=== PATIENT | female | born 1995 | race Caucasian/White ===

== ENCOUNTER 2025-07-31 12:35 | Emergency (ER) | payer BC, SELFPAY ==
[2025-07-31] VITALS (9 sets, daily range): BP systolic 140–188; BP diastolic 86–128; PULSE 68–118; RESP 16; TEMP 37.1; O2SAT 96–100; BMI 46.8
--- OUTSIDE RECORDS SUMMARY | 2025-07-31 12:38 | XMS_ITS | Clinical Summary ---
Author Organization [facility] Address [address] [place] [address] Care Team Providers Care Mdm Sr Name Role Phone Unavailable Primary Care Provider Unavailabl e Source Comments Patient records contain information from all sites at [facility]. For routine questions regarding patient records, call [phone] during business hours, M-F 8:00 AM - 5:00 PM Central Time. Record requests for emergency care only can be directed to [phone] at any time.[facility] Allergies No known active allergies Medications * This document contains information received from the source organization and may not represent a complete record from that organization. etonogestreL (NEXPLANON) 68 mg subdermal implant 1 each by subdermal route continuously. Inserted 11/19/2022 3 Active multivitamin tablet Take 1 tablet by mouth daily. Active Active Problems Problem Noted Date Diagnosed Date Elevated Blood Pressure 04/07/2025 Assessment & Plan (04/07/2025 9:49 AM CDT): Elevated Blood Pressure Blood pressure was elevated at 150/85. Previous borderline reading of 142/88 two years ago. Emphasized controlling blood pressure before to reduce risks such as gestational hypertension and preeclampsia. Advised home blood pressure monitoring to establish baseline levels and report findings. Discussed referral to family medicine for management if readings remain elevated. - Purchase a home blood pressure cuff and monitor regularly. - Report home blood pressure readings via portal message in one month. - Consider referral to family medicine for management if readings remain elevated. Surveillance Contraceptive Subdermal 11/19/2022 Overview (11/19/2022): Nexplanon inserted 11/19/2022. Family History Medical History Relation Name Comments No Known Problems Brother No Known Problems Father Heart disease Maternal Grandfather Hypertension Maternal Grandfather Hypertension Maternal Grandmother Breast cancer Mother Relation Name Status Comments Brother Alive Father Alive Maternal Grandfather Maternal Grandmother Mother Alive Social History Tobacco Use Types Packs/Day Years Used Date Smoking Tobacco: Never Smokeless Tobacco: Never Tobacco Cessation:Counseling Given: Not Answered Alcohol Use Standard Drinks/Week Comments Yes 0 (1 standard drink = 0.6 oz pur e alcohol) Rare [facility] Utilities Answer Date Recorded In the past 12 months has th e electric, gas, oil, or water company threatened to shut off services in your home? No 03/31/2025 Hunger Vital Sign Answer Date Recorded Within the past 12 months, y ou worried that your food would run out before you got the money to buy more. Never true 03/31/20 25 Within the past 12 months, t he food you bought just didn't last and you didn't have money to get more. Never true 03/31/2025 PRAPARE - Transportation Answer Date Re corded In the past 12 months, has l ack of transportation kept you from medical appointments or from getting medications? No 03/04 In the past 12 months, has l ack of transportation kept you from meetings, work, or from getting things needed for daily living? No 03/31/2025 Housing Stability Answer Date Recorded What is your living situation today? 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 Not on file No t on file Last Filed Vital Signs Vital Sign Reading Time Taken Comments Blood Pressure 150/85 04/07/2025 8:44 AM CDT Pulse - - Temperature - - Respiratory Rate - - Oxygen Saturation - - Inhaled Oxygen Concentration - - Weight 145 kg (319 lb 14.2 oz) 04/07/2025 8:44 A M CDT Height 175.8 cm (5' 9.21) 04/07/2025 8:44 AM CD T Body Mass Index 46.95 04/07/2025 8:44 AM CDT Plan of Treatment Health Maintenance Due Date Last Done Comments Cervical/Vaginal Cancer Screening 1994 HIV Screening 1994 Hepatitis C Screening 1994 Depression Screening (Annual PHQ-2) 11/03/2024 COVID-19 Vaccine ( season) 2025 05/01/2021, 04/10/2021 Influenza Vaccine (#1) 2025 9, 10/10/2018, 08/03/2017, Additional history exists DTaP,Tdap,and Td Vaccines (8 - Td or Tdap) 11/29/2025 11/29/2015, 07/02/2005, 05/21/1999, Additional history exists Hepatitis B Vaccines Completed 1994, 1994, 1994 IPV Vaccines Completed 08/14/1995, 12/05, 1994, Additional history exists HPV Vaccines Completed 01/10/2012, 09/03, 07/02/2011 Pneumococcal vaccine (0-49 years) Aged Out No longer eligible based on patient's age to complete this topic Medical Devices Implanted Type Area Public Housing Interviewer Device Identifier Shelf Expiration Date Model / Serial / Lot [id number]-11/03 Implanted:Qty : 1 on 11/19/2022 by Edith Gilliland, LU, C.N.P. Gynecologic Other Left: Arm [employer] 09/04/2024 / / [id number] Description:Nexplanon Insurance [facility] [place] [id number] [place] [id number] PROGRESSIVE
--- NOTE | 2025-07-31 13:09 | CRLHL7_ITS ---
For Patients: As a result of the Century Cures Act, medical imaging exams and procedure reports are released immediately into your electronic medical record. You may view this report before your referring provider. If you have questions, please contact your health care provider. INDICATION: Right calf pain TECHNIQUE: A compression venous ultrasound exam was performed of the left lower extremity using eldridge-scale imaging, color Doppler and spectral Doppler analysis. FINDINGS: Sonographic imaging of the right lower extremity demonstrates normal compressibility and color Doppler venous blood flow within the common femoral vein, deep femoral vein, and the proximal greater saphenous vein. Within the thigh, the femoral vein is patent and compressible. At a lower level, the popliteal and posterior tibial veins also show normal compressibility and color Doppler venous blood flow. Limited imaging of the contralateral groin demonstrates a normal spectral waveform and color Doppler venous blood flow within the right common femoral vein. IMPRESSION: No evidence of deep vein thrombosis within the right lower extremity. Dictated by Denisse Edwards MD @ 07/31/2025 3:10:18 PM (Electronically Signed)
--- OUTSIDE RECORDS SUMMARY | 2025-07-31 13:25 | XMS_ITS | Clinical Summary ---
Author Organization [email or web address] Address [address] [place] [id number] Care Team Providers Care Front Desk Associate Name Role Phone Manquin [facility] - Primary Ne re Provider Allergies No known active allergies Medications No known medications Social History Tobacco Use Types Packs/Day Years Used Date Smoking Tobacco: Never Assessed Interpersonal Safety Answer Date Record ed Are you being hit, kicked, p ushed or yelled at (see row info)? No 12/27/2024 Interpersonal Safety Abuse 12 - 18 Not on file 12/27/2024 Interpersonal Safety Ambulatory Vulnerability No t on file 12/27/2024 Comments No Sex and Gender Information Value Date Recorded Sex Assigned at Not on file Legal Sex Female 8:48 AM CDT Gender Identity Not on file Sexual Orientation Not on file Obstetrics History Last Filed Vital Signs Vital Sign Reading Time Taken Comments Blood Pressure 157/97 12/27/2024 6:58 PM SALES TRAINER Pulse 118 12/27/2024 6:58 PM SALES TRAINER Temperature 37.3 C (99.2 F) 12/27/2024 6:58 PM SALES TRAINER Respiratory Rate 16 12/27/2024 6:58 PM SALES TRAINER Oxygen Saturation 99% 12/27/2024 6:58 PM SALES TRAINER Inhaled Oxygen Concentration - - Weight 143.2 kg (315 lb 11.2 oz) 12/27/2024 6:58 PM SALES TRAINER Height 175.3 cm (5' 9) 12/27/2024 6:58 PM SALES TRAINER Body Mass Index 46.62 12/27/2024 6:58 PM SALES TRAINER Plan of Treatment Health Maintenance Due Date Last Done Comments Tetanus booster 2005 Depression screening for age 12+ 2006 HIV for age 15-65 2009 BMI (ht and wt on same day) for age 18+ 2012 Hepatitis C screening for ag e 18-79 2012 Hepatitis B series for 19+ ( 1 of 3 - 19+ 3-dose series) 2013 Pap test for age 21-65 2015 HPV series for age 9-45 (1 - 3-dose SCDM series) 2021 COVID-19 vaccine series (3 - 2024- season) 2025 05/01/2021, 04/10/2021 Influenza Vaccine (#1) 2025 RSV vaccine for adults or (1 - 1-dose 75+ series) 2069 Pneumococcal series for age 6-49 Aged Out No longer eligible b ased on patient's age to complete this topic Insurance [facility] [employer] INS [id number] [place] [id number] Care Teams Front Desk Associate Relationship Specialty Start Date End Date Desiree [facility] - [address] [place] [id number] PCP - General 12/27/24
--- NOTE | 2025-07-31 13:31 | ED.GENADULT ---
HPI - General Adult General Chief complaint: Extremity Pain/Injury, Lower Stated complaint: Right leg, Knee down hurts and weak Time Seen by Provider: 07/31/25 12:45 Source: patient Mode of arrival: ambulatory Limitations: no limitations History of Present Illness HPI narrative: 30-year-old female presenting today with right lower extremity pain. Patient states it has been hurting for about 4 days now. She states the pain is located below the knee all the way down to the foot. She states that when she lays down the pain goes away. When she sits she starts to feel the pain when she stands the pain is certainly present. A makes her legs feel weak. She states that she has been having some low back pain as well as well as some right-sided hip pain. She has been seeing a chiropractor fairly regularly for quite some time now for her back and hip pain. Her chiropractor told her to come to the emergency department to rule out a DVT. She denies chest pain or shortness of breath. No fevers or chills. No injury to the area. She denies the knee giving out or feeling weak. She denies any skin rashes. She denies any loss of bowel or bladder function. She denies any unintentional weight loss. Related Data Previous Rx's ?Medication ?Instructions ?Recorded methylprednisolone 4 mg tablets in See Rx Instructions PO .COMPLEX 07/31/25 a dose pack (Medrol (Harpreet)) #21 ea Allergies Allergy/AdvReac Type Severity Reaction Status Date / Time No Known Drug Allergies Allergy Verified 07/31/25 12:44 Review of Systems Status of ROS: Reports: 10 or more systems reviewed and unremarkable except as noted in History and below Exam Narrative: Exam Narrative: Obese, well-developed patient in no acute distress. Alert and oriented. Answers questions appropriately. Mood and affect are appropriate. Thoughts are goal oriented and rational. No tangential or magical thinking noted. Patient speaks in full sentences without needing to catch her breath. HEENT: Normocephalic atraumatic. Pupils are equally round reactive to light. Extraocular muscles are intact. Conjunctivae are moist without any icterus noted. Moist mucous membranes. Abdomen: Soft and nontender nondistended with normal bowel sounds. Difficult to assess for organomegaly secondary to body habitus. Extremities: Bilateral lower extremities are without edema. Normal DP and PT pulses. Patient has normal strength of the lower extremities with flexion and extension both at the distal and proximal muscle groups. She has no footdrop. She has a slightly decreased strength with flexion at the right ankle when compared to the left. Normal circumference of the calf. Negative Homans sign. There is no obvious swelling. No tenderness palpation at the calf. Skin: Well perfused without any obvious rashes. Back: Normal appearance. She has mild discomfort of the paraspinal musculature on the right side of the lumbar spine. Const: Vital Signs, click to edit/add: Vital Signs - 24 hr 07/31/25 12:44 07/31/25 14:06 07/31/25 14:07 Temperature 98.8 F Pulse Rate 94 92 Pulse Rate [Pulse Oximeter] 118 H Respiratory Rate 16 Blood Pressure 144/86 H Blood Pressure [Ri ght Upper Arm] 188/128 H Pulse Oximetry 96 97 99 Oxygen Delivery Me thod Room Air 07/31/25 14:15 07/31/25 14:30 07/31/25 14:31 Temperature Pulse Rate 68 99 88 Pulse Rate [Pulse Oximeter] Respiratory Rate Blood Pressure 156/93 H Blood Pressure [Ri ght Upper Arm] Pulse Oximetry 99 100 98 Oxygen Delivery Me thod 07/31/25 14:45 07/31/25 15:00 07/31/25 15:02 Temperature Pulse Rate 84 74 68 Pulse Rate [Pulse Oximeter] Respiratory Rate Blood Pressure 140/86 H Blood Pressure [Ri ght Upper Arm] Pulse Oximetry 99 99 99 Oxygen Delivery Me thod Course Course ED Course: Venous ultrasound was unremarkable. Vital Signs Vital signs: Initial Vital Signs Temperature 98.8 F 07/31/25 12:44 Temperature Source Temporal Artery Scan 07/31/25 12:44 Pulse Rate 118 H 07/31/25 12:44 Respiratory Rate 16 07/31/25 12:44 Blood Pressure 188/128 H 07/31/25 12:44 Blood Pressure Mean 148 H 07/31/25 12:44 Blood Pressure Position Standing 07/31/25 12:44 Pulse Oximetry 96 07/31/25 12:44 Oxygen Delivery Method Room Air 07/31/25 12:44 Vital Signs Temperature 98.8 F 07/31/25 12:44 Pulse Rate 118 H 07/31/25 12:44 Respiratory Rate 16 07/31/25 12:44 Blood Pressure 188/128 H 07/31/25 12:44 Pulse Oximetry 96 07/31/25 12:44 Oxygen Delivery Method Room Air 07/31/25 12:44 Temperature 98.8 F 07/31/25 12:44 Pulse Rate 68 07/31/25 15:02 Respiratory Rate 16 07/31/25 12:44 Blood Pressure 140/86 H 07/31/25 15:02 Pulse Oximetry 99 07/31/25 15:02 Oxygen Delivery Method Room Air 07/31/25 12:44 Medical Decision Making MDM Narrative Medical decision making narrative: 30-year-old female with low back pain and radiculopathy. Will treat with a Medrol Dosepak. Imaging Data Venous US: Attestation: I have reviewed the pertinent imaging results. Radiologist's impression: Right calf pain TECHNIQUE: A compression venous ultrasound exam was performed of the left lower extremity using eldridge-scale imaging, color Doppler and spectral Doppler analysis. FINDINGS: Sonographic imaging of the right lower extremity demonstrates normal compressibility and color Doppler venous blood flow within the common femoral vein, deep femoral vein, and the proximal greater saphenous vein. Within the thigh, the femoral vein is patent and compressible. At a lower level, the popliteal and posterior tibial veins also show normal compressibility and color Doppler venous blood flow. Limited imaging of the contralateral groin demonstrates a normal spectral waveform and color Doppler venous blood flow within the right common femoral vein. IMPRESSION: No evidence of deep vein thrombosis within the right lower extremity. Discharge Plan Discharge Clinical Impression: Radiculopathy, Elevated blood pressure reading Patient Disposition: Home, Self-Care Condition: Stable Additional Instructions: Take steroid as prescribed. Recommend following up with your primary care provider to discuss physical therapy for back strengthening exercises. Return to the emergency department if you develop loss of bowel or bladder function, if you develop vomiting or fever, or if you develop numbness in the groin region. Can also follow up in the [facility] here in [place]. [phone] - ask to see Dr. Brooks. Blood pressure was elevated in the ER today. Recommend checking blood pressures at home and follow-up with your primary care provider. Prescriptions: New methylprednisolone [Medrol (Harpreet)] 4 mg tablets,dose pack See Rx Instructions PO .COMPLEX Qty: 21 0RF Rx Instructions: orally per package directions Follow Up/Referrals: Provider,Not a Local [Primary Care Provider, Family Practice] Stand Alone Forms: MyHealth Info Instructions
== END 2025-07-31 15:28 | disposition home or self-care (01) ==
PROVIDERS: Emergency Provider Family Medicine
DX: M54.10 Radiculopathy, site unspecified (principal); R03.0 Elevated blood-pressure reading, without diagnosis of hypertension; M79.604 Pain in right leg
CPT/HCPCS: 93971; 99284